=== PATIENT | female | born 1985 | race African-American/Black ===

== ENCOUNTER 2018-12-15 23:21 | Emergency (ER) | payer MEDICAID, OTHER ==
[~2018-12-15] VITALS: Ht 170.2 cm; Wt 92.1 kg
--- NOTE | 2018-12-15 23:42 | ED GU-Female ---
General Stated Complaint: ABD PAIN;SPOTTING Source: patient Exam Limitations: no limitations History of Present Illness Date Seen by Provider: December 15, 2018 Time Seen by Provider: 23:27 Initial Comments Patient presents to ER by private conveyance with her 2 daughters and one niece with chief complaint that she's having some spotting she noticed that started up today and some pain near the pelvis incisional site from her last . She had a 3 years ago. She is a G 5 P 8 with 2 sets of twins and no miscarriages. She denies having tested her urine for recently. She is typically regular every month with her period and her last period was 10/26/18. She is not on control nor has she had her tubes tied. She has not taken anything for the pain. She denies nausea dysuria or vaginal discharge. Last intercourse was one to 2 weeks ago. She has a stable relationship for many years. She would still like to have GC and chlamydia testing. Allergies and Home Medications Allergies Coded Allergies: No Known Drug Allergies (Unverified , 12/15/18) Patient Home Medication List Home Medication List Reviewed: Yes Review of Systems Review of Systems Constitutional: No chills, No diaphoresis EENTM: No ear discharge, No ear pain Respiratory: No cough, No short of breath Cardiovascular: No chest pain, No edema Gastrointestinal: No abdominal pain, No constipation, No diarrhea Genitourinary: see HPI; denies discharge, denies dysuria LMP: Oct 26, 2018 Past [id number] Hx Patient Social History Alcohol Use: Denies Use Recreational Drug Use: No Smoking Status: Never a Smoker Recent Foreign Travel: No Contact w/Someone Who Travel: No Physical Exam Vital Signs Vital Signs - First Documented 12/15/18 23:35 Temp 97.7 Pulse 97 Resp 16 B/P (MAP) 126/81 (96) Pulse Ox 98 O2 Delivery Room Air Capillary Refill : Height, Weight, BMI Height: '" Weight: lbs. oz. kg; BMI Method: General Appearance: WD/WN, no apparent distress HEENT: PERRL/EOMI, normal ENT inspection, pharynx normal Neck: full range of motion, normal inspection Cardiovascular: normal peripheral pulses, regular rate, rhythm Respiratory: normal breath sounds, no respiratory distress, no accessory muscle use Gastrointestinal: normal bowel sounds, soft Genital/Rectal: normal genital exam, normal vaginal exam; No tenderness Neurologic/Psychiatric: alert, oriented x 3 Skin: normal color, warm/dry Progress/Results/Core Measures Suspected Sepsis SIRS Temperature: Pulse: Respiratory Rate: Blood Pressure / Mean: Results/Orders Lab Results Laboratory Tests Test 12/15/18 00:19 12/15/18 23:30 Range/Units Urine Color YELLOW Urine Clarity CLEAR Urine pH 7.0 5-9 Urine Specific Raymond 1.015 L 1.016-1.022 Urine Protein NEGATIVE NEGATIVE Urine Glucose (UA) NEGATIVE NEGATIVE Urine Ketones TRACE H NEGATIVE Urine Nitrite NEGATIVE NEGATIVE Urine Bilirubin NEGATIVE NEGATIVE Urine Urobilinogen 1.0 NORMAL MG/DL Urine Leukocyte Esterase NEGATIVE NEGATIVE Urine RBC (Auto) NEGATIVE NEGATIVE Urine RBC NONE /HPF Urine WBC NONE /HPF Urine Squamous Epithelial Cells 2-5 /HPF Urine Crystals NONE /LPF Urine Bacteria NEGATIVE /HPF Urine Casts NONE /LPF Urine Mucus NONE /LPF Urine Culture Indicated NO Urine Test NEGATIVE NEGATIVE Micro Results Microbiology 12/15/18 Wet Prep - Final, Complete My Orders Orders - FARIDA VILLALBA Ua Culture If Indicated (12/15/18 23:23) Hcg,Qualitative Urine (12/15/18 23:23) Wet Prep (12/15/18 23:37) Neis Ez Dna Urine Test (12/16/18 00:00) Chlamydia Trachomatis Urine (12/16/18 00:00) Vital Signs/I&O 12/15/18 23:35 Temp 97.7 Pulse 97 Resp 16 B/P (MAP) 126/81 (96) Pulse Ox 98 O2 Delivery Room Air Capillary Refill : Progress Note #1: Time: 23:41 Progress Note Plan a speculum examination, wet prep, urinalysis, and urine hCG. Progress Note #2: Time: 00:00 Progress Note After an unremarkable pelvic exam where she did not have any chandelier sign or discharges to clear thin viscous vaginal fluid we'll wait for the wet prep and she has declined doing any blood work. If her symptoms persist for more than a week or don't resulted in her having a period shortly then she can follow-up with Dr. Palmer. She just had a Pap smear 6 months ago. Departure Impression Primary Impression: Bacterial vaginitis Disposition: 01 HOME, SELF-CARE Condition: Stable Departure-Patient Inst. Decision time for Depature: 00:25 Referrals: BENJAMÍN PARRA MD (PCP/Family) Primary Care Physician MICKEY MESA DO Patient Instructions: Bacterial Vaginosis (DC) Add. Discharge Instructions: Use Tylenol 1000 g every 8 hours in addition to ibuprofen 800 mg every 8 hours and heating pads for cramping or pain. upkeep worker the Flagyl take one tablet twice a day with food for the next 7 days. Expect results within the next 5 days on the send out labs and we will call you if they're positive. Follow-up with your website developer in 1-2 weeks if you're still having discomfort. Scripts Metronidazole (Flagyl) 500 Mg Tablet 500 MG PO BID for 7 Days, #14 TAB 0 Refills Prov: FARIDA VILLALBA 12/16/18 FARIDA VILLALBA December 15, 2018 23:42
[2018-12-15 23:47] LABS: BACTERIA,URINE NEGATIVE /HPF; BILIRUBIN,URINE NEGATIVE (NEGATIVE); CLARITY,URINE CLEAR; COLOR,URINE YELLOW; GLUCOSE, URINE (UA) NEGATIVE (NEGATIVE); KETONES,URINE TRACE (NEGATIVE); LEUKOCYTE ESTERASE ,URINE NEGATIVE (NEGATIVE); NITRITE,URINE NEGATIVE (NEGATIVE); PROTEIN,URINE NEGATIVE (NEGATIVE)
[2018-12-16] MEDS ORDERED: METR500T PO (00:28)
[2018-12-16 00:40] VITALS: BP 114/71
== END 2018-12-16 00:40 | disposition home or self-care (01) ==
LOC: ER FS 23:24
DX: N76.0 Acute vaginitis (principal); B96.89 Other specified bacterial agents as the cause of diseases classified elsewhere; Z87.59 Personal history of other complications of pregnancy, childbirth and the puerperium
CPT/HCPCS: 81000; 84703; 87210; 87491; 87591; 99284